=== PATIENT | male | born 1950 | race Caucasian/White ===

== ENCOUNTER 2018-08-04 04:43 | Inpatient (IN) | payer MEDICARE ==
[2018-08-04] VITALS (11 sets, daily range): BP systolic 133–190; BP diastolic 85–100
[~2018-08-04] VITALS: Ht 177.8 cm; Wt 83.7 kg
[2018-08-04] MEDS ORDERED: ASPI-515 PO (04:59)
[2018-08-04] MEDS ORDERED: AMLO10TA6 PO (04:59)
[2018-08-04] MEDS ORDERED: [UNRECOGNIZED DRUG - OTHER] (04:59)
[2018-08-04] MEDS ORDERED: ANDROGEL 1% (04:59)
[2018-08-04] MEDS ORDERED: FISH OIL (04:59)
[2018-08-04] MEDS ORDERED: EFAV600T PO (04:59)
[2018-08-04] MEDS ORDERED: LAMI1TAB PO (04:59)
[2018-08-04] MEDS ORDERED: ACYC-114 PO (04:59)
[2018-08-04] MEDS ORDERED: ATEN100T PO (04:59)
[2018-08-04] MEDS ORDERED: TRAZ-136 PO (04:59)
[2018-08-04] MEDS ORDERED: VITAMIN D (04:59)
[2018-08-04] MEDS ORDERED: HYDR25TA6 PO (04:59)
[2018-08-04] MEDS ORDERED: MAALOX/HYOSCYAMINE/LIDOCAINE 45 ML BTL ONE (05:14)
[2018-08-04] MEDS ORDERED: ONDANSETRON 2MG/ML, 2ML ONE (05:14)
[2018-08-04] MEDS ORDERED: FAMOTIDINE 20 MG/2 ML ONE (05:15)
[2018-08-04] MEDS ORDERED: FAMOTIDINE 20 MG/2 ML IVP ONE (05:30)
[2018-08-04] MEDS ORDERED: MAALOX/HYOSCYAMINE/LIDOCAINE 45 ML BTL PO ONE (05:30)
[2018-08-04] MEDS ORDERED: ONDANSETRON 2MG/ML, 2ML IVPush ONE (05:30)
[2018-08-04] MEDS ORDERED: SODIUM CHLORIDE FLUSH 10ML SYR IVF ONE (05:30)
[2018-08-04 05:39] LABS: MEAN CORPUSCULAR HEMOGLOBIN 41.2 pg (27.5-34.5); MEAN CORPUSCULAR HGB CONC 35.3 g/dL (33.2-36.2); MEAN CORPUSCULAR VOLUME 116.6 fL (81-97); MEAN PLATELET VOLUME 6.6 fL (7.4-10.4); PLATELET COUNT 147 x10^3/uL (130-400); RED BLOOD COUNT 4.03 x10^6/uL (4.38-5.82); RED CELL DISTRIBUTION WIDTH 13.6 % (9.4-14.8)
[2018-08-04 05:56] LABS: BASOPHILS # (AUTO) 0.02 x10^3/uL (0-0.1); BASOPHILS % (AUTO) 0 % (0-1); EOSINOPHILS # (AUTO) 0.09 x10^3/uL (0-0.4); EOSINOPHILS % (AUTO) 2 % (1-7); LYMPHOCYTES # (AUTO) 2.11 x10^3/uL (1-3.4); LYMPHOCYTES % (AUTO) 40 % (22-44); MD SCAN; MONOCYTES # (AUTO) 0.29 x10^3/uL (0.2-0.8); MONOCYTES % (AUTO) 5 % (2-9); NEUTROPHILS # (AUTO) 2.83 x10^3/uL (1.8-6.8); NEUTROPHILS % (AUTO) 53 % (42-75)
[2018-08-04 06:27] LABS: ALANINE AMINOTRANSFERASE 52 U/L (12-78); ALBUMIN 3.9 g/dL (3.4-5.0); ANION GAP 8 mmol/L (5-15); CALCIUM 8.7 mg/dL (8.5-10.1); CHLORIDE 107 mmol/L (98-107); CREATININE 1.34 mg/dL (0.7-1.3)
[2018-08-04 06:32] LABS: ALKALINE PHOSPHATASE 103 U/L (45-117); BILIRUBIN,TOTAL 0.4 mg/dL (0.2-1.0); TOTAL PROTEIN 7.1 g/dL (6.4-8.2)
[2018-08-04 06:35] LABS: TROPONIN I 0.136 ng/mL (0.000-0.045)
[2018-08-04] MEDS ORDERED: METOPROLOL TARTRATE 50 MG TABLET PO ONE (07:00)
[2018-08-04] MEDS ORDERED: NITROGLYCERIN OINT 2%, 1GM TP ONE ×2 (07:00→07:21)
[2018-08-04] MEDS ORDERED: ASPIRIN 81 MG TABLET CHEW PO ONE (07:00)
[2018-08-04] MEDS ORDERED: ASPIRIN 81 MG TABLET CHEW ONE (07:21)
[2018-08-04] MEDS ORDERED: D5%-0.45% NACL 1,000 ML IV SCH (07:40)
[2018-08-04] MEDS ORDERED: MAALOX/HYOSCYAMINE/LIDOCAINE 45 ML BTL PO PRN (08:00)
[2018-08-04] MEDS ORDERED: NITROGLYCERIN 0.4 MG BOTTLE (25 TABS) SL PRN ×2 (08:00)
[2018-08-04] MEDS ORDERED: ONDANSETRON ODT 4 MG PO PRN (08:00)
[2018-08-04] MEDS ORDERED: ONDANSETRON 2MG/ML, 2ML IVPush PRN (08:00)
[2018-08-04] MEDS ORDERED: HYDROmorphone 2 MG/ML, 1ML IVPush PRN ×2 (08:00→12:00)
[2018-08-04] MEDS ORDERED: ACETAMINOPHEN 325 MG TABLET PO PRN (08:00)
[2018-08-04] MEDS ORDERED: hydrALAzine 20 MG/ML, 1ML IVPush PRN (08:00)
[2018-08-04] MEDS ORDERED: HYDROcodone/APAP 5/325 TABLET PO PRN (08:00)
[2018-08-04] MEDS: HYDROCHLOROTHIAZIDE 25 MG TABLET PO SCH (08:25)
[2018-08-04] MEDS: AMLODIPINE 10 MG TAB PO SCH (08:26)
[2018-08-04] MEDS: ACYCLOVIR 400 MG TABLET PO SCH ×2 (08:26→21:18)
[2018-08-04] MEDS: ASPIRIN 81 MG TABLET EC PO SCH (08:26)
[2018-08-04] MEDS: METOPROLOL TARTRATE 25 MG TABLET PO SCH ×2 (08:56→18:08)
[2018-08-04] MEDS ORDERED: EFAVIRENZ 600 MG TAB PO SCH (09:00)
[2018-08-04] MEDS ORDERED: FAMOTIDINE 20 MG TABLET PO SCH (09:00)
[2018-08-04] MEDS: LAMIVUDINE PO SCH ×2 (11:26→21:18)
[2018-08-04] MEDS: ZIDOVUDINE PO SCH ×2 (11:26→21:18)
[2018-08-04] MEDS: HYDROcodone/APAP 5/325 TABLET PO PRN ×2 (12:32→18:09)
[2018-08-04] MEDS ORDERED: hydrALAzine 20 MG/ML, 1ML IV PRN (14:00)
[2018-08-04] MEDS ORDERED: HEPARIN 5,000 UNITS/ML, 1ML IV ONE (14:00)
[2018-08-04] MEDS ORDERED: HEPARIN 25,000 UNITS/500ML PMX 500 ML IV PRN (14:00)
[2018-08-04] MEDS: D5%-0.45% NACL 1,000 ML IV SCH (15:00)
[2018-08-04] MEDS: LIDODERM 5% PATCH TD SCH (16:12)
[2018-08-04] MEDS: NITROGLYCERIN 0.4 MG/SPRAY SL PRN ×2 (16:26→16:31)
[2018-08-04] MEDS: ATORVASTATIN 40 MG TABLET PO SCH (21:17)
[2018-08-04] MEDS: HEPARIN 5,000 UNITS/ML, 1ML IV PRN (21:17)
[2018-08-04] MEDS: EFAVIRENZ 600 MG TAB HOMEMEDPO SCH (21:18)
[2018-08-04] MEDS: TRAZODONE 50MG TABLET PO SCH (21:26)
[2018-08-05 03:39] VITALS: BP 155/89
[2018-08-05 03:56] LABS: CHOL/HDL RATIO 5.9; LDL/HDL RATIO 2.6 (0.5-3.0)
[2018-08-05 04:00] LABS: HEMOGLOBIN A1C 4.8 % (4.2-6.3)
[2018-08-05] MEDS: HEPARIN 5,000 UNITS/ML, 1ML IV PRN (04:03)
[2018-08-05] MEDS: D5%-0.45% NACL 1,000 ML IV SCH (04:03)
[2018-08-05] MEDS: METOPROLOL TARTRATE 25 MG TABLET PO SCH ×2 (06:33→17:39)
[2018-08-05 07:45] VITALS: BP 143/93
[2018-08-05] MEDS ORDERED: DIAZEPAM 5 MG TABLET PO PRN (08:00)
[2018-08-05] MEDS ORDERED: SODIUM CHLORIDE 0.9% 1,000 ML IV SCH (08:30)
[2018-08-05] MEDS: ASPIRIN 81 MG TABLET EC PO SCH (08:36)
[2018-08-05] MEDS: ACYCLOVIR 400 MG TABLET PO SCH ×2 (08:36→22:15)
[2018-08-05] MEDS: AMLODIPINE 10 MG TAB PO SCH (08:37)
[2018-08-05] MEDS: HYDROCHLOROTHIAZIDE 25 MG TABLET PO SCH (08:37)
[2018-08-05] MEDS: LAMIVUDINE PO SCH ×2 (08:37→22:15)
[2018-08-05] MEDS: ZIDOVUDINE PO SCH ×2 (08:37→22:15)
[2018-08-05] MEDS ORDERED: BIVALIRUDIN 250 MG ONE (12:15)
[2018-08-05] MEDS ORDERED: MIDAZOLAM 1 MG/ML, 2ML ONE ×2 (12:15→12:48)
[2018-08-05] MEDS ORDERED: VERAPAMIL 2.5 MG/ML, 2ML ONE (12:15)
[2018-08-05] MEDS ORDERED: FENTANYL PF 100 MCG/2ML ONE (12:15)
[2018-08-05] MEDS ORDERED: HEPARIN 1,000 UNITS/ML, 10ML ONE (12:16)
[2018-08-05] MEDS ORDERED: DIPHENHYDRAMINE 50 MG/ML, 1ML ONE (12:34)
[2018-08-05] MEDS ORDERED: CLOPIDOGREL 300 MG TABLET ONE (13:01)
[2018-08-05] MEDS: SODIUM CHLORIDE 0.9% 1,000 ML IV SCH ×2 (13:49→22:02)
[2018-08-05] MEDS: LIDODERM 5% PATCH TD SCH (13:49)
[2018-08-05] MEDS ORDERED: BIVALIRUDIN 250 MG in DEXTROSE 5% 100 ML IV SCH (14:52)
[2018-08-05 15:31] VITALS: BP 138/92
[2018-08-05 20:48] VITALS: BP 133/79
[2018-08-05] MEDS ORDERED: HEPARIN 25,000 UNITS/500ML PMX 500 ML ONE (21:44)
[2018-08-05] MEDS ORDERED: HEPARIN 25,000 UNITS/500ML PMX 500 ML IV PRN ×2 (22:00)
[2018-08-05] MEDS: ATORVASTATIN 40 MG TABLET PO SCH (22:15)
[2018-08-05] MEDS: TRAZODONE 50MG TABLET PO SCH (22:15)
[2018-08-05] MEDS: EFAVIRENZ 600 MG TAB HOMEMEDPO SCH (22:18)
[2018-08-06] VITALS: BP 103/73
[2018-08-06 05:19] LABS: ANION GAP 10 mmol/L (5-15); CALCIUM 8.4 mg/dL (8.5-10.1); CHLORIDE 105 mmol/L (98-107); CREATININE 1.33 mg/dL (0.7-1.3)
[2018-08-06] MEDS: SODIUM CHLORIDE 0.9% 1,000 ML IV SCH ×3 (05:42→20:20)
[2018-08-06] MEDS: METOPROLOL TARTRATE 25 MG TABLET PO SCH ×2 (05:43→18:09)
[2018-08-06] MEDS ORDERED: HEPARIN 5,000 UNITS/ML, 1ML IV PRN (06:00)
[2018-08-06 07:55] VITALS: BP 118/78
[2018-08-06] MEDS: AMLODIPINE 10 MG TAB PO SCH (09:21)
[2018-08-06] MEDS: ASPIRIN 81 MG TABLET EC PO SCH (09:21)
[2018-08-06] MEDS: ACYCLOVIR 400 MG TABLET PO SCH ×2 (09:21→20:16)
[2018-08-06] MEDS: CLOPIDOGREL 75 MG TABLET PO SCH (09:21)
[2018-08-06] MEDS: HYDROCHLOROTHIAZIDE 25 MG TABLET PO SCH (09:22)
[2018-08-06] MEDS: ZIDOVUDINE PO SCH ×2 (09:22→20:17)
[2018-08-06] MEDS: LAMIVUDINE PO SCH ×2 (09:22→20:17)
[2018-08-06] MEDS: APIXABAN 5 MG TABLET PO SCH ×2 (10:28→20:16)
[2018-08-06] MEDS: LIDODERM 5% PATCH TD SCH (14:00)
[2018-08-06 14:49] VITALS: BP 126/83
[2018-08-06] MEDS ORDERED: CLOP75TA PO (15:19)
[2018-08-06] MEDS ORDERED: ATOR40TA78 PO (15:19)
[2018-08-06] MEDS ORDERED: METO25TA35 PO (15:19)
[2018-08-06 18:08] VITALS: BP 129/81
[2018-08-06 19:22] VITALS: BP 119/77
[2018-08-06] MEDS: ATORVASTATIN 40 MG TABLET PO SCH (20:16)
[2018-08-06] MEDS ORDERED: TRAZODONE 50MG TABLET PO SCH (21:00)
[2018-08-06] MEDS ORDERED: EFAVIRENZ 600 MG TAB HOMEMEDPO SCH (21:00)
[2018-08-06] MEDS ORDERED: HEPARIN 25,000 UNITS/500ML PMX 500 ML IV PRN (22:00)
[2018-08-07] MEDS ORDERED: EFAVIRENZ 600 MG TAB HOMEMEDPO SCH (00:11)
[2018-08-07 01:30] VITALS: BP 107/74
[2018-08-07] MEDS: SODIUM CHLORIDE 0.9% 1,000 ML IV SCH (04:28)
[2018-08-07] MEDS: METOPROLOL TARTRATE 25 MG TABLET PO SCH (04:51)
[2018-08-07 07:10] VITALS: BP 112/78
[2018-08-07] MEDS: CLOPIDOGREL 75 MG TABLET PO SCH (08:05)
[2018-08-07] MEDS: AMLODIPINE 10 MG TAB PO SCH (08:05)
[2018-08-07] MEDS: ASPIRIN 81 MG TABLET EC PO SCH (08:05)
[2018-08-07] MEDS: APIXABAN 5 MG TABLET PO SCH (08:06)
[2018-08-07] MEDS: ACYCLOVIR 400 MG TABLET PO SCH (08:06)
[2018-08-07] MEDS: HYDROCHLOROTHIAZIDE 25 MG TABLET PO SCH (08:07)
[2018-08-07] MEDS: ZIDOVUDINE PO SCH (08:09)
[2018-08-07] MEDS: LAMIVUDINE PO SCH (08:09)
[2018-08-07] MEDS ORDERED: APIX5TAB PO (09:05)
== END 2018-08-07 10:15 | disposition home or self-care (01) | DRG 248 ==
LOC: ED 07:20 → EDIP 07:21 → OBSVTOIN 07:21 → 5SO 08:02 → DCLOUNGE 08-07 09:53
PROVIDERS: ADMIT Hospitalist; ATTEND Family Medicine
PROC: 02703DZ Dilation of Coronary Artery, One Artery with Intraluminal Device, Percutaneous Approach (ICD-10-PCS; principal; 2018-08-05)
PROC: 4A023N7 Measurement of Cardiac Sampling and Pressure, Left Heart, Percutaneous Approach (ICD-10-PCS; 2018-08-05)
PROC: B2111ZZ Fluoroscopy of Multiple Coronary Arteries using Low Osmolar Contrast (ICD-10-PCS; 2018-08-05)
PROC: B2151ZZ Fluoroscopy of Left Heart using Low Osmolar Contrast (ICD-10-PCS; 2018-08-05)
DX: I21.4 Non-ST elevation (NSTEMI) myocardial infarction (principal); I50.31 Acute diastolic (congestive) heart failure; I13.0 Hypertensive heart and chronic kidney disease with heart failure and stage 1 through stage 4 chronic kidney disease, or unspecified chronic kidney disease; D68.69 Other thrombophilia; E78.5 Hyperlipidemia, unspecified; I25.10 Atherosclerotic heart disease of native coronary artery without angina pectoris; I48.0 Paroxysmal atrial fibrillation; K76.0 Fatty (change of) liver, not elsewhere classified; K76.89 Other specified diseases of liver; R00.1 Bradycardia, unspecified; K80.20 Calculus of gallbladder without cholecystitis without obstruction; N18.3 Chronic kidney disease, stage 3 (moderate); N20.0 Calculus of kidney; Z79.01 Long term (current) use of anticoagulants; Z82.49 Family history of ischemic heart disease and other diseases of the circulatory system; Z87.442 Personal history of urinary calculi; Z79.82 Long term (current) use of aspirin; Z79.899 Other long term (current) drug therapy; Z88.0 Allergy status to penicillin
CPT/HCPCS: 36415; 71045; 71046; 76700; 80048; 80053; 80061; 83036; 83690; 83880; 84484; 85025; 85520; 92928; 93005; 93306; 93458; 96374; 96375; 99156; 99157; 99285; C1876; C1894; G0378; J0583; J1170; J1644; J2250; J2405; J3010; C1725; C1769; C1887; J0360; J1200; J7030; Q9967; S0028